=== PATIENT | male | born 1935 | race Caucasian/White ===

== ENCOUNTER 2017-04-01 13:13 | Day surgery (SDC) | payer MEDICARE ==
[~2017-04-01] VITALS: Ht 180.3 cm; Wt 122.7 kg
[2017-04-01 13:45] VITALS: BP 167/65; PULSE 56; TEMP 97.5
[2017-04-01] MEDS ORDERED: COUMADIN 22.5 MG/TAB PO (14:14)
[2017-04-01] MEDS ORDERED: AMARYL 2MG T2 MG/TAB PO (14:15)
[2017-04-01] MEDS ORDERED: COUMADIN4 MG PO (14:15)
[2017-04-01] MEDS ORDERED: TOPROL XL100 MG PO (14:16)
[2017-04-01] MEDS ORDERED: GLUCOPHAGE1000 MG PO (14:16)
[2017-04-01] MEDS ORDERED: NEURONTIN800 MG/TAB PO (14:17)
[2017-04-01] MEDS ORDERED: UROXATRAL10 M1 PO (14:17)
[2017-04-01] MEDS ORDERED: ZYRTEC ALLERGY10 MG PO (14:17)
[2017-04-01] MEDS ORDERED: ZOLOFT 100MG100 MG PO (14:18)
[2017-04-01] MEDS ORDERED: REGLAN 10MG10 MG/TAB PO (14:19)
[2017-04-01] MEDS ORDERED: ZOCOR 80MG80 MG PO (14:19)
[2017-04-01] MEDS ORDERED: PROAIR HFA0.09 MG/AC IH (14:20)
[2017-04-01] MEDS ORDERED: FLONASEALLERGY NS (14:20)
[2017-04-01] MEDS ORDERED: ASPIRIN 81M81 MG/TA2 PO (14:21)
[2017-04-01 15:25] VITALS: BP 148/77; PULSE 50; TEMP 97.5
[2017-04-01 15:40] VITALS: BP 150/66; PULSE 50
== END 2017-04-01 15:55 | disposition home or self-care (01) ==
LOC: SDCO 13:13
DX: K22.11 Ulcer of esophagus with bleeding (principal); K22.2 Esophageal obstruction; K21.0 Gastro-esophageal reflux disease with esophagitis; K22.8 Other specified diseases of esophagus
CPT/HCPCS: OP; J2250; J2405; J3010; J7030